=== PATIENT | male | born 1995 | race Caucasian/White ===

== ENCOUNTER 2018-08-14 09:48 | Emergency (ER) | payer SELFPAY ==
--- NOTE | 2018-08-14 10:13 | EDPHY ---
General Time Seen by Provider: 08/14/18 10:09 Narrative: CLINICAL IMPRESSION: Right hand laceration ASSESSMENT/PLAN: Patient is a 23-year-old male with no significant medical history who presents to the emergency department with complaints of right hand laceration that he sustained 12 hr ago. Patient is not toxic appearing, he is in no distress. Physical examination reveals 2 cm laceration on the palmar aspect of the right hand just proximal to the MCP joint. There is no evidence of deep structure involvement, neurovascular compromise, foreign body, or bony involvement. The wound was not contaminated, tetanus status was already up-to-date. The wound was copiously irrigated and then repaired loosely as discussed in the procedure note, the patient tolerated this well. He was placed in an alumifoam splint for protection and will continue for the next 2 days. Patient understands as this injury occurred 12 hrs prior that he is at increased risk for developing infection; the wound was superficial, I am unable to visualize any deep structures including tendons. He was given a dose of Keflex in the emergency department and will continue prophylactically for the next 5 days. Wound care instructions discussed. The patient does not have a primary care provider, I have provided a referral for him. He will return to the emergency department in 7 days for suture removal, sooner for any signs of infection. Return precautions discussed- he will return for increased pain, signs of infection, fever, vomiting, if the wound opens or for any other concerns. Patient verbalizes understanding and are is agreement with plan. DIFFERENTIAL DIAGNOSIS: Includes but not limited to laceration of tendon or vascular structure, underlying fracture, laceration with retained FB ED PROCEDURES: Laceration Repair Verbal consent obtained by patient. Risks discussed, including but not limited to infection, pain, retained foreign body, need for additional repair, poor cosmetic result, tendon damage, nerve damage, poor wound healing, vascular damage. Alternatives to repair discussed. [place] protocol used to establish correct patient, procedure, equipment, computer customer support specialist, and site. Anesthesia obtained by local infiltration. Anesthetized with 1% lidocaine with epinephrine. Laceration location palmar aspect of right hand, proximal to pointer MCP, length 2 cm, depth 5 mm, Repair type simple. Patient was prepped and draped in usual sterile fashion. Hemostasis achieved with direct pressure. Wound explored through full range of motion and entire depth of wound probed and visualized with gloved finger. No suspicion for nerve damage, tendon damage, underlying fracture, vascular damage, foreign body, or contamination. Area was cleansed with Shur-Clens and irrigated with sterile saline as per protocol. No foreign body or material removed. Repair method simple interrupted. For sutures placed. Well aligned, loosely approximated. wound was dressed with antibiotic ointment and sterile dressing. Patient tolerated well with no immediate complications. Wound care: Clean and dry x 24 hours, gently clean with soap and water, cover with topical antibiotic ointment/bandage. Suture/Staple removal: 7 Days CHIEF COMPLAINT: Laceration HPI: Patient is a 23-year-old male with no significant medical history who presents to the emergency department with complaints of a right hand laceration sustained 12 hr prior to arrival. Patient reports he was trying to catch a glass when it broke subsequently causing him to cut his hand on a piece of the glass. He denies any concern for foreign body or broken glass in the wound. He denies any numbness or tingling of the finger or hand. He denies any other injury or concern. He is up-to-date on his tetanus status. He is right-hand dominant. PAST MEDICAL HISTORY: Denies Pertinent Past Surgical History: Denies Social History: Denies smoking REVIEW OF SYSTEMS: All other systems negative Constitutional: No fever, no chills Musculoskeletal: No deformity, no joint pain Skin: Laceration right hand Neurological: No sensory loss or weakness. PHYSICAL EXAM: General Appearance: Well developed, well nourished and in no acute distress Neurological: Alert and oriented x 3 Skin: Warm and dry, no rash Musculoskeletal: Upper Extremities: Intact distal pulses, Full range of motion intact, no tenderness, no ecchymosis or edema. Right hand reveals approximately 2.0 cm laceration on the palmar aspect just proximal to the MCP of the pointer finger. Two point discrimination is intact distally. Lower Extremities: Intact distal pulses, No edema, No tenderness, No cyanosis, full range of motion intact, No calf tenderness bilaterally. MEDICAL DECISION MAKING: Patient was seen independently. Secondary supervising physician at time of evaluation was Dr. Holt. Diagnosis: Right hand laceration. New, requires workup Summary: See assessment and plan for summary of ED visit Clinical lab tests: Not applicable. Independent visualization of images, tracing, or specimens not applicable. Decision to obtain medical records or history from someone other than the patient no Review / Summarize previous medical records not available Discussed patient with another provider: Dr. Holt - History Smoking Status: Never smoked - Objective Vital Signs: Initial Vital Signs Temperature (C) 36.7 C 08/14/18 09:55 Heart Rate 63 08/14/18 09:55 Respiratory Rate 18 08/14/18 09:55 Blood Pressure 124/76 H 08/14/18 09:55 O2 Sat (%) 96 08/14/18 09:55 O2 Delivery Mode Room Air Allergies/Adverse Reactions: No Known Allergies Allergy (Unverified 08/14/18 09:54) Home Medications: Medication Instructions Recorded Cephalexin [Keflex (*)] 500 mg PO Q6H 5 Days #20 cap 08/14/18 Medications Given: Discontinued Medications Cephalexin HCl (Keflex) 500 mg PO EDNOW ONE PRN Reason: Protocol Stop: 08/14/18 10:25 Last Admin: 08/14/18 10:47 Dose: 500 mg Departure - Departure Disposition: Home, Routine, Self-Care Clinical Impression: Hand laceration Qualifiers: Encounter type: initial encounter Foreign body presence: without foreign body Laterality: right Qualified Code(s): S61.411A - Laceration without foreign body of right hand, initial encounter Condition: Good Instructions: Laceration (ED) Additional Instructions: DISCHARGE INSTRUCTIONS FROM YOUR DOCTOR Thank you for visiting our emergency department today. Please keep in mind that discharge from the emergency department does not mean that there is nothing wrong - it simply means that we have not identified an emergency condition that requires further evaluation or treatment in the hospital. Keep wound clean and dry for 24 hours. Then remove dressing, clean at least twice daily or when soiled with soap and water, apply antibiotic ointment and dressing. Do not soak the wound while the stitches are in place. Elevate hand as much as possible for the next 24 hours to decrease the swelling and pain. Wear the splint to immobilize the finger for the next 2-5 days to facilitate rapid healing. Anticipate suture removal in 7 days. Tylenol every 4-6 hours as directed as needed for pain. Do not exceed 4000 mg in 24 hours. Ibuprofen as directed every 6-8 hours with food as needed for pain. Stop for stomach upset. Do not exceed 2400 mg in 24 hours. Continue your regular medications as prescribed. Since you do not have a primary care provider I would like you to return to the emergency department for suture removal. Please return immediately for any signs of infection. Anticipate suture removal in approximately a week. You have been prescribed an antibiotic, please take as directed. You may want to take a probiotic as a can cause diarrhea. As discussed the laceration was not deep enough to visualize the tendon today. It is unlikely a tendon injury is present and your tendon function is currently intact. However, if at any time, you feel a pop and have difficulty bending or straightening the finger, you should seek re-evaluation from a hand specialist urgently. Return for signs of wound infection ie: redness, swelling, drainage, foul odor, red streaks, fever, chills, pain, bleeding, if the stitches pop, if the wound opens, for numbness, tingling, weakness, discoloration of the finger, coolness of the finger, inability to move or bend the finger or for any other new, worsening or worrisome symptoms. People present with illnesses and injuries in different ways, and it is always possible that we have missed something. You may always return for re-evaluation if symptoms worsen or if they are not improving or if you develop new/different symptoms. Again, thank you for choosing our emergency department. We hope that you feel better. Referrals: Ngoc Mayo MD [Medical Doctor] - As per Instructions Prescriptions: Cephalexin [Keflex (*)] 500 mg PO Q6H 5 Days #20 cap
[2018-08-14] MEDS ORDERED: CEPHALEXIN 500 MG CAP PO ONE (10:24)
[2018-08-22 22:00] VITALS: BP 110/78
== END 2018-08-14 11:09 | disposition home or self-care (01) ==
PROC: 0HQFXZZ Repair Right Hand Skin, External Approach (ICD-10-PCS; principal; 2018-08-14)
DX: S61.411A Laceration without foreign body of right hand, initial encounter (principal); W25.XXXA Contact with sharp glass, initial encounter; Y92.9 Unspecified place or not applicable; Y93.9 Activity, unspecified; Y99.9 Unspecified external cause status
CPT/HCPCS: L3925